=== PATIENT | male | born 1995 | race Caucasian/White ===

== ENCOUNTER 2020-06-06 15:38 | Emergency (ER) | payer SELFPAY ==
[2020-06-06 15:55] VITALS: BP 130/87; PULSE 77; RESP 16; TEMP 36.7; O2SAT 99; BMI 23.7
[2020-06-06 17:25] LABS: Add Urine Microscopic? YES; Bilirubin Urine Neg (Negative); Blood Urine Neg (Negative); Glucose Urine UA Norm (Normal); Ketones Urine Negative (Negative); Leukocyte Esterase Urine Negative (Negative); Nitrate Urine Negative (Negative); Protein Urine 1+ (Negative); Specific Gravity, Urine 1.025 (1.005-1.030); Urine Appearance Hazy (CLEAR); Urine Color Yellow (Yellow); Urobilinogen Urine Norm (Negative); pH Urine 5 (5-7)
[2020-06-06 17:42] LABS: Add Urine Culture? No; Bacteria Urine TRACE /hpf; RBC Urine 0-4 /hpf (0-2); Squamous Epithelial Cell Urine 0-4 /hpf (0-5); Uric Acid Crystals Urine 80-100 /hpf
[2020-06-06 18:25] LABS: Basophils % 0.3 %; Eosinophils % 0.3 %; Hematocrit 54.4 % (42.0-52.0); Hemoglobin 18.1 g/dL (11.7-16.6); Lymphocytes # 2.9 10^3/uL (0.8-4.8); Lymphocytes % 21.1 %; Mean Corpuscular HGB Conc 33.3 g/dL (30.0-36.0); Mean Corpuscular Hemoglobin 30.7 pg (28.0-34.0); Mean Corpuscular Volume 92.2 fL (80-94); Mean Platelet Volume 9.2 fL (7.4-10.4); Monocytes # 1.1 10^3/uL (0.2-0.9); Monocytes % 8.4 %; Neutrophils % 69.5 %; Nucleated Red Blood Cells % 0 %; Platelet Count 319 10^3/cmm (130-400); Red Cell Distribution Width 12.8 % (12.1-15.1); White Blood Count 13.5 10^3/uL (4.0-10.0)
[2020-06-06 18:41] LABS: Lactate (Lactic Acid level) 1.4 mmol/L (0.5-2.2)
[2020-06-06 18:43] LABS: Alanine Aminotransferase 37 U/L (0-41); Albumin Level 5.6 g/dL (3.5-5.2); Alkaline Phosphatase 87 IU/L (40-130); Anion Gap 18.3 (5-19); Aspartate Amino Transferase 48 U/L (0-40); Blood Urea Nitrogen 29 mg/dL (6-20); Calcium 10.5 mg/dL (8.5-10.5); Carbon Dioxide 30 mmol/L (22-29); Chloride 87 mmol/L (98-107); Globulin 3.9 g/dL (1.3-4.6); Glomerular Filtration Rate 68.4 mL/min (90-130); Glucose 115 mg/dL (65-115); Lipase 18 U/L (13-60); Osmolality Calculated 270 mOsm/kg (285-295); Potassium 4.3 mmol/L (3.5-5.1); Sodium 131 mmol/L (136-145); Total Bilirubin 0.9 mg/dL (0.15-1.2); Total Protein 9.5 g/dL (6.6-8.7)
[2020-06-06 18:56] LABS: Acetaminophen < 5.0 ug/mL (10-30); Alcohol Level < 10 mg/dL (0-10); Salicylate < 0.3 mg/dL (3-10)
--- NOTE | 2020-06-06 20:16 | ED_ITS ---
HPI - Nausea/Vomiting/Diarrhea General: Chief complaint: Nausea/Vomiting/Diarrhea Stated complaint: sent by [facility]/abnormal labs Time Seen by Provider: 06/06/20 19:43 Source: patient Mode of arrival: ambulatory Limitations: no limitations History of Present Illness: HPI Narrative: Patient is a very nice 25-year-old male who presents to ED today with a complaint of nausea, vomiting, intermittent abdominal pains, and muscle cramps. Patient was recently assessed by PCP and had labs performed which showed an elevated white count of 20.9. He was subsequently contacted and told to come to the emergency department for further evaluation. Patient has not had any episodes of hematemesis. He has been having normal bowel movements. He has not been running fevers. Upon arrival patient's vital signs are stable. Patient tells me he has been working outside in the heat for several days now. He is reporting intermittent cramps to his muscles and abdomen. MD elicited complaint: nausea, vomiting, abdominal pain and other (muscle cramps) Associated nausea: Yes Associated abdominal pain: Yes Location of pain: Diffuse Pain consistency: intermittent Quality: cramping Exacerbating factors: none Relieving factors: none Associated symtoms: Reports nausea; Denies change in vision, chest pain, dizziness, dysuria, fatigue, headache(s), malaise, palpitations or syncope Review of Systems Const: Denies: fever(s), chills, body aches, change in appetite, change in weight, fatigue or malaise Eyes: Denies: change in vision, blurry vision, photophobia, floaters or seeing flashes ENMT: Denies: odynophagia Card: Denies: chest pain, palpitations, irregular heart rhythm, edema, swelling of feet/ankles, lightheadedness, syncope, pre-syncope, dyspnea on exertion or orthopnea Resp: Denies: dyspnea, productive cough, non-productive cough, hemoptysis or chest congestion GI: Reports: abdominal pain (intermittent cramping), nausea and vomiting; Denies: hematemesis, coffee ground emesis, diarrhea, change in bowel habits, hematochezia or melena : Denies: flank pain, difficulty urinating, dysuria, urinary frequency or urinary urgency Musc: Reports: muscle cramps; Denies: neck pain, back pain, extremity pain, extremity swelling, joint pain or joint swelling Skin/Breast: Denies: rash Neuro: Denies: headache(s), numbness in extremities, weakness in extremities, sensory changes, difficulty walking, dizziness, vertigo or confusion PFSH ED PFSH: Social History Smoking and tobacco status: current every day smoker cigarettes Packs smoked per day: 0.5 Second hand smoke exposure: No Alcohol intake: never Desire information about alcohol rehabilitation?: No Counseling given: No Desire information about substance/drug rehabilitation?: No Counseling given: No Adopted: No Caregiver/support person: No Lives independently: Yes Household members: spouse Housing: House Marital status: Single Number of children: 0 service: No Current occupational status: employed Pets and animals: No History of recent travel: No Physical Exam Const: COMMON NORMALS: no acute distress, average body habitus, patient oriented x3, no limitations, healthy appearing, alert and well nourished ORIENTATION/CONSCIOUSNESS: Yes oriented to person, Yes oriented to place and Yes oriented to time HENMT: COMMON NORMALS: normocephalic and atraumatic HEAD & SCALP: normocephalic and atraumatic Resp: COMMON NORMALS: normal respiratory effort and clear to auscultation bilaterally AUSCULTATION: clear to auscultation bilaterally Cardio: COMMON NORMALS: regular rate and regular rhythm RATE: regular rate RHYTHM: regular rhythm GI: COMMON NORMALS: Normal to inspection, nondistended, normoactive bowel sounds present, Soft to palpation, non-tender, No hepatosplenomegaly present and no masses PALPATION: Yes Soft to palpation and Yes No hepatosplenomegaly present : COMMON NORMALS: Yes no CVA tenderness BLADDER/KIDNEY EXAM: Yes no CVA tenderness Back/Pelvis: COMMON NORMALS: no CVA tenderness Extremity: COMMON NORMALS: normal to inspection, full ROM, no calf tenderness and no pedal edema GENERAL: Yes normal exam except as noted Neuro: ANALI COMA SCALE: document GCS findings [facility] coma scale eye opening: Spontaneous Anali coma scale verbal response: Orientated [facility] coma scale motor response: Obey commands [facility] coma scale total score: 15 COMMON NORMALS: patient oriented x3 SENSORIUM/ORIENTATION: Yes alert, Yes oriented to person, Yes oriented to place and Yes oriented to time Skin: COMMON NORMALS: no rashes or lesions noted GENERAL SKIN EXAM: no rashes or lesions noted Course Vital Signs: Vital signs: Vital Signs Temperature 98.0 F 06/06/20 15:55 Pulse Rate 87 06/06/20 22:51 Respiratory Rate 16 06/06/20 22:51 Blood Pressure 132/74 06/06/20 22:51 Pulse Oximetry 98 06/06/20 22:51 MDM - Nausea/Vomiting/Diarrhea MDM Narrative: Medical decision making narrative: Patient's white count currently is 13.5. He does appear to be hemo-concentrated. Elevated white count earlier most likely due to his vomiting and stress from dehydration. Patient CPK is 874. He was given 2 L of fluids here and reports feeling much better. He has not had any active episodes of vomiting. His lactate is normal. His vital signs are completely stable. Recommend lots of rest and continuing to push fluids while at home over the weekend. He needs to have his labs repeated early next week. Patient CT of his abdomen/pelvis was normal. Patient is stable to be discharged. Return to ED precautions given. Lab Data: Labs: Lab Results 06/06/20 06/06/20 06/06/20 Range/Units 16:32 18:17 18:17 WBC 13.5 H (4.0-10.0) 10^3/ uL RBC 5.90 H (4.1-5.3) 10^6/u L Hgb 18.1 H (11.7-16.6) g/dL Hct 54.4 H (42.0-52.0) % MCV 92.2 (80-94) fL MCH 30.7 (28.0-34.0) pg MCHC 33.3 (30.0-36.0) g/dL RDW 12.8 (12.1-15.1) % Plt Count 319 (130-400) 10^3/c mm MPV 9.2 (7.4-10.4) fL Neut % (Auto) 69.5 % Lymph % (Auto) 21.1 % [place] % (Auto) 8.4 % Eos % (Auto) 0.3 % Baso % (Auto) 0.3 % Neut # (Auto) 9.40 H (1.8-7.7) 10^3/u L Lymph # (Auto) 2.9 (0.8-4.8) 10^3/u L [place] # (Auto) 1.1 H (0.2-0.9) 10^3/u L Eos # (Auto) 0.0 (0.0-0.8) 10^3/u L Baso # (Auto) 0.0 (0.0-0.1) 10^3/u L Nucleated RBC % (a uto) 0 % Nucleated RBCs # 0.0 /100WBC Sodium 131 L (136-145) mmol/L Potassium 4.3 (3.5-5.1) mmol/L Chloride 87 L (98-107) mmol/L Carbon Dioxide 30 H (22-29) mmol/L Anion Gap 18.3 (5-19) BUN 29 H (6-20) mg/dL Creatinine 1.3 H (0.7-1.2) mg/dL GFR Calculation 68.4 L (90-130) mL/min Glucose 115 (65-115) mg/dL Calculated Osmolal ity 270 L (285-295) mOsm/k g Lactate (0.5-2.2) mmol/L Calcium 10.5 (8.5-10.5) mg/dL Total Bilirubin 0.9 (0.15-1.2) mg/dL AST 48 H (0-40) U/L ALT 37 (0-41) U/L Alkaline Phosphata se 87 (40-130) IU/L Creatine Kinase (39-308) U/L CK-MB (CK-2) (0-10.4) ng/mL CK-MB (CK-2) Rel I ndex (0.0-5.3) % Total Protein 9.5 H (6.6-8.7) g/dL Albumin 5.6 H (3.5-5.2) g/dL Globulin 3.9 (1.3-4.6) g/dL Lipase 18 (13-60) U/L Urine Color Yellow (Yellow) Urine Appearance Hazy A (CLEAR) Urine pH 5 (5-7) Ur Specific Gravit y 1.025 (1.005-1.030) Urine Protein 1+ H (Negative) Urine Glucose (UA) Norm (Normal) Urine Ketones Negative (Negative) Urine Blood Neg (Negative) Urine Nitrate Negative (Negative) Urine Bilirubin Neg (Negative) Urine Urobilinogen Norm (Negative) mg/dL Ur Leukocyte Vannessa ase Negative (Negative) Urine RBC 0-4 H (0-2) /hpf Urine WBC None (0-5) /hpf Ur Squamous Epith Cells 0-4 H (0-5) /hpf Uric Acid Crystals 80-100 H /hpf Amorphous Sediment Not Reportable Urine Bacteria Trace (NONE) /hpf Salicylates < 0.3 L (3-10) mg/dL Acetaminophen < 5.0 L (10-30) ug/mL Ethyl Alcohol < 10 (0-10) mg/dL 06/06/20 06/06/20 Range/Units 18:17 18:17 WBC (4.0-10.0) 10^3/ uL RBC (4.1-5.3) 10^6/u L Hgb (11.7-16.6) g/dL Hct (42.0-52.0) % MCV (80-94) fL MCH (28.0-34.0) pg MCHC (30.0-36.0) g/dL RDW (12.1-15.1) % Plt Count (130-400) 10^3/c mm MPV (7.4-10.4) fL Neut % (Auto) % Lymph % (Auto) % [place] % (Auto) % Eos % (Auto) % Baso % (Auto) % Neut # (Auto) (1.8-7.7) 10^3/u L Lymph # (Auto) (0.8-4.8) 10^3/u L [place] # (Auto) (0.2-0.9) 10^3/u L Eos # (Auto) (0.0-0.8) 10^3/u L Baso # (Auto) (0.0-0.1) 10^3/u L Nucleated RBC % (a uto) % Nucleated RBCs # /100WBC Sodium (136-145) mmol/L Potassium (3.5-5.1) mmol/L Chloride (98-107) mmol/L Carbon Dioxide (22-29) mmol/L Anion Gap (5-19) BUN (6-20) mg/dL Creatinine (0.7-1.2) mg/dL GFR Calculation (90-130) mL/min Glucose (65-115) mg/dL Calculated Osmolal ity (285-295) mOsm/k g Lactate 1.4 (0.5-2.2) mmol/L Calcium (8.5-10.5) mg/dL Total Bilirubin (0.15-1.2) mg/dL AST (0-40) U/L ALT (0-41) U/L Alkaline Phosphata se (40-130) IU/L Creatine Kinase 874 H* (39-308) U/L CK-MB (CK-2) 3.2 (0-10.4) ng/mL CK-MB (CK-2) Rel I ndex (0.0-5.3) % Total Protein (6.6-8.7) g/dL Albumin (3.5-5.2) g/dL Globulin (1.3-4.6) g/dL Lipase (13-60) U/L Urine Color (Yellow) Urine Appearance (CLEAR) Urine pH (5-7) Ur Specific Gravit y (1.005-1.030) Urine Protein (Negative) Urine Glucose (UA) (Normal) Urine Ketones (Negative) Urine Blood (Negative) Urine Nitrate (Negative) Urine Bilirubin (Negative) Urine Urobilinogen (Negative) mg/dL Ur Leukocyte Vannessa ase (Negative) Urine RBC (0-2) /hpf Urine WBC (0-5) /hpf Ur Squamous Epith Cells (0-5) /hpf Uric Acid Crystals /hpf Amorphous Sediment Urine Bacteria (NONE) /hpf Salicylates (3-10) mg/dL Acetaminophen (10-30) ug/mL Ethyl Alcohol (0-10) mg/dL Discharge Plan Discharge Patient Disposition: Home Clinical Impression: Acute dehydration Rhabdomyolysis Qualifiers: Rhabdomyolysis type: non-traumatic Qualified Code(s): M62.82 - Rhabdomyolysis Condition: Stable Prescriptions: No Action pantoprazole [Protonix] 40 mg tablet,delayed release (DR/EC) 40 mg PO DAILY 30 Days Qty: 30 RF: 0 sucralfate [Carafate] 1 gram tablet 1 gm PO TID 30 Days Qty: 90 RF: 0 Discharge Orders: Discharge Order (Routine); Ordered 06/06/20 Ordered By: Gwen Lopez Referrals: Gunner Carrera, [employer] [Primary Care Provider] - Patient Instructions: Dehydration - Adult, Dehydration (ED), Rhabdomyolysis (ED) Activity Restrictions/Additional Instructions: As discussed continue to push fluids as much as possible tomorrow and over the weekend. You need to contact primary care and have labs repeated early next week. Please return to the emergency department for worsening abdominal pain, repetitive episodes of vomiting, diarrhea, severe cramping, extremely dark urine, or any other concerns you may have. Discharge Date/Time: 06/06/20 22:58 Coding Level of Care Code ED Vocal Artist for Chg Fwd Exam Comprehensive
--- NOTE | 2020-06-06 20:16 | CTR_ITS ---
PROCEDURE INFORMATION: Exam: CT Abdomen And Pelvis With Contrast Exam date and time: 06/06/2020 9:43 PM Age: 25 years old Clinical indication: Nausea and vomiting; Abdominal pain; Additional info: Abdominal cramping; N/v TECHNIQUE: Imaging protocol: Computed tomography of the abdomen and pelvis with intravenous contrast. Radiation optimization: All CT scans at this facility use at least one of these dose optimization techniques: automated exposure control; mA and/or kV adjustment per patient size (includes targeted exams where dose is matched to clinical indication); or iterative reconstruction. Contrast material: OMNI 300; Contrast volume: 95 ml; Contrast route: INTRAVENOUS (IV); COMPARISON: CT abdomen pelvis wo con [id number] 01/01/2019 4:14 AM RADIATION DOSE METRICS: Total DLP (mGy-cm): 538.17 FINDINGS: Liver: Normal. No mass. Gallbladder and bile ducts: Normal. No calcified stones. No ductal dilation. Pancreas: Normal. No ductal dilation. Spleen: Normal. No splenomegaly. Adrenals: Normal. No mass. Kidneys and ureters: Normal. No hydronephrosis. Stomach and bowel: Unremarkable. No obstruction. No mucosal thickening. Appendix: No evidence of appendicitis. Intraperitoneal space: Unremarkable. No free air. No significant fluid collection. Vasculature: Unremarkable. No abdominal aortic aneurysm. Lymph nodes: Unremarkable. No enlarged lymph nodes. Bladder: Unremarkable as visualized. Reproductive: Unremarkable as visualized. Bones/joints: Unremarkable. No acute fracture. Soft tissues: Unremarkable. CT/CT abdomen pelvis w con* [id number] IMPRESSION: Negative for acute inflammatory process in the abdomen or pelvis Radiation Dose CTDIVOL = (mGy): DLP = 538.17 (mGy-cm)
[2020-06-06 20:42] VITALS: BP 143/96; PULSE 74; RESP 17; O2SAT 98
[2020-06-06] MEDS: sodium chloride 0.9% 1,000 ML 999 ML IV ×2 (20:43→21:33)
[2020-06-06 21:01] VITALS: BP 124/87; PULSE 76; RESP 18; O2SAT 98
[2020-06-06 21:10] LABS: Creatine Phosphokinase 874 U/L (39-308)
[2020-06-06 21:32] LABS: CKMB 3.2 ng/mL (0-10.4)
[2020-06-06 21:47] VITALS: BP 134/76; PULSE 88; RESP 16; O2SAT 98
[2020-06-06] MEDS: ondansetron 2 mg/ML SDV 2 mL 4 MG IVP (22:04)
[2020-06-06] MEDS: diphenhydrAMINE 50 mg/mL SDV 1mL 25 MG IVP (22:04)
[2020-06-06] MEDS: iohexol 300 mg/mL 100 mL Btl IV (22:29)
[2020-06-06 22:51] VITALS: BP 132/74; PULSE 87; RESP 16; O2SAT 98
== END 2020-06-06 22:58 | disposition home or self-care (01) ==
PROVIDERS: Family Medicine; Emergency Provider Physician Assistant; PCP Nurse Practitioner
DX: M62.82 Rhabdomyolysis (principal); E86.0 Dehydration; F17.210 Nicotine dependence, cigarettes, uncomplicated
CPT/HCPCS: 12345; 36415; 74177; 80053; 80307; 81001; 82550; 82553; 83605; 83690; 85025; 96361; 96374; 96375; 99283; 99284; J1200; J2405; J7030; Q9967